=== PATIENT | female | born 1960 | race Caucasian/White ===

== ENCOUNTER → 2024-05-05 16:16 | Outpatient (REF) | payer MEDICARE, SELFPAY | LOC: HWWDC 16:16 | PROVIDERS: ATTENDING PHYSICIAN Family Medicine; REFERRING PHYSICIAN Obstetrics & Gynecology | DX: Z12.31 Encounter for screening mammogram for malignant neoplasm of breast (principal) | CPT/HCPCS: 77063; 77067 ==

== ENCOUNTER → 2025-08-10 13:33 | Outpatient (REF) | payer MEDICARE, SELFPAY | LOC: WDC 13:33 | PROVIDERS: ATTENDING PHYSICIAN Family Medicine | DX: Z12.31 Encounter for screening mammogram for malignant neoplasm of breast (principal) | CPT/HCPCS: 77063; 77067 ==